=== PATIENT | male | born 1940 ===

== ENCOUNTER 2023-02-26 05:30 | Day surgery (SDC) | payer OTHER | END 2023-02-26 12:30 | disposition home or self-care (01) | LOC: AMB-ENDOS 05:30 | PROVIDERS: ATTEND Surgery | DX: K55.20 Angiodysplasia of colon without hemorrhage (principal); K57.30 Diverticulosis of large intestine without perforation or abscess without bleeding; Z20.822 Contact with and (suspected) exposure to COVID-19 ==